=== PATIENT | female | born 1955 | race Caucasian/White ===

== ENCOUNTER 2019-07-05 14:37 | Emergency (ER) | payer OTHER ==
--- NOTE | 2019-07-05 14:58 | PDOC ---
History of Present Illness - General Chief Complaint: Pain Stated Complaint: LEFT LOWER QUADRANT PAIN INTO LEFT LEG Past History - Past Medical History Allergies/Adverse Reactions: Allergies Allergy/AdvReac Type Severity Reaction Status Date / Time No Known Allergies Allergy Unverified 07/05/19 14:55 Home Medications: Ambulatory Orders Acetaminophen with Codeine [Acetaminophen-Cod #3 Tablet] 1 tab PO PRN 07/05/19 Ciprofloxacin HCl [Cipro] 500 mg PO BID 07/05/19 Insulin Lispro [Humalog] 5 unit SQ AC 07/05/19 Lorazepam 0.5 mg PO HS 07/05/19 metroNIDAZOLE [Flagyl -] 500 mg PO TID 07/05/19 ED Treatment Course - LABORATORY CBC & Chemistry Diagram: 07/05/19 16:30 07/05/19 16:30 Medical Decision Making - Medical Decision Making HPI: 63yo F with PMH of DM, Depression, arthritis presenting with LLQ abdominal pain x 2 weeks. Patient has never had pain like this before. Endorses intermittent nausea but no vomiting. Had three nonbloody bowel movements yesterday, the first ones were hard and dark and the last ones were loose and light brown. History of abdominal surgeries include 3 c-sections. The pain is rated 10/10 and described as "chayo," radiating down her left leg. On Saturday, the patient started having pins and needles sensation in her left thigh, sometimes associated with the pain or with walking, but not present at rest. Has a GI doctor in the [facility]. Had a colonoscopy and endoscopy about three years ago which were "fine." Patient was evaluated at [facility] for this pain on 06/22 and [facility] three or four days later. Patient presents today because she still has pain and now has the unusual sensation in her leg. Patient was given Ciprofloxacin and Flagyl at [facility] but has not finished the course (many pills remain though the course should have completed by now) because the medicines made her nauseous and drowsy. Patient was given an enema at [place] which alleviated her pain as she had been constipated for three or four days. Denies fever, but endorses chills. No chest pain or shortness of breath. PCP: Dr. Truong (in the [facility]) GI: Dr. Wyman (in the city) ROS: Constitutional: no fever, +chills HEENT: no throat pain, no dysphagia Cardiovascular: no chest pain, no palpitations Respiratory: no cough, no shortness of breath Gastrointestinal: +abdominal pain, +nausea Genitourinary: no dysuria, no hematuria Musculoskeletal: +abnormal sensation on L. thigh, no abnormal sensation on R. thigh Skin: no rash, no itching Neurologic: +lightheadedness, +weakness PE: General: Awake, alert, and fully oriented, in no acute distress Head: No signs of trauma Eyes: EOMI, sclera anicteric ENT: Moist mucus membranes Neck: Normal ROM, supple Lungs: Lungs clear, Normal breath sounds Cardio: Regular rhythm, S1 and S2 present Abdomen: Tender to palpation in LLQ. Soft, nondistended. No guarding, no rebound , no masses. +L. CVA tenderness, no R. CVA tenderness Extremities: Normal range of motion, Distal pulses present. Equal femoral 2+ pulses. Reporting lessened sensation on anterior left thigh when compared to anterior right thigh. SKIN: Warm, Dry, normal turgor Neurologic: Cranial nerves II through XII grossly intact. Normal speech ED Course/MDM: DDX including but not limited to diverticulitis, UTI, pyelonephritis, mesenteric ischemia, SBO, gastroparesis, nephrolithiasis Labs Morphine Zofran Fluids 07/05/19 14:58 CBC WBC 5.5 K/mm3 (4.0-10.8) 07/05/19 16:30 RBC 4.18 M/mm3 (3.60-5.2) 07/05/19 16:30 Hgb 14.0 GM/dl (10.7-15.3) 07/05/19 16:30 Hct 42.8 % (32.4-45.2) 07/05/19 16:30 MCV 102.3 fl (80-96) H 07/05/19 16:30 MCH 33.4 pg (25.7-33.7) 07/05/19 16:30 MCHC 32.7 g/dl (32.0-36.0) 07/05/19 16:30 RDW 13.0 % (11.6-15.6) 07/05/19 16:30 Plt Count 165 K/MM3 (134-434) 07/05/19 16:30 MPV 11.2 fl (7.5-11.1) H 07/05/19 16:30 Absolute Neuts (auto) 2.5 K/mm3 07/05/19 16:30 Neutrophils % 45.5 % (42.8-82.8) 07/05/19 16:30 Lymphocytes % 41.9 % (8-40) H 07/05/19 16:30 Monocytes % 9.8 % (3.8-10.2) 07/05/19 16:30 Eosinophils % 1.6 % (0-4.5) 07/05/19 16:30 Basophils % 1.2 % (0-2.0) 07/05/19 16:30 No leukocytosis CMP Sodium 134 mmol/L (136-145) L 07/05/19 16:30 Potassium 5.3 mmol/L (3.5-5.1) H 07/05/19 16:30 Chloride 95 mmol/L (98-107) L 07/05/19 16:30 Carbon Dioxide 27 mmol/L (21-32) 07/05/19 16:30 Anion Gap 12 MMOL/L (8-16) 07/05/19 16:30 BUN 10.0 mg/dl (7-18) 07/05/19 16:30 Creatinine 0.7 mg/dl (0.55-1.3) 07/05/19 16:30 Est GFR (CKD-EPI)AfAm 106.87 07/05/19 16:30 Est GFR (CKD-EPI)NonAf 92.21 07/05/19 16:30 Random Glucose 409 mg/dl (74-106) H* 07/05/19 16:30 Calcium 9.4 mg/dl (8.5-10) 07/05/19 16:30 Magnesium 1.7 mg/dL (1.8-2.4) L 07/05/19 16:30 Total Bilirubin 0.4 mg/dl (0.2-1) 07/05/19 16:30 AST 24 U/L (15-37) 07/05/19 16:30 ALT 17 U/L (13-61) 07/05/19 16:30 Alkaline Phosphatase 77 U/L (45-117) 07/05/19 16:30 Troponin I < 0.03 ng/ml (0.00-0.05) 07/05/19 15:45 Total Protein 6.6 g/dl (6.4-8.2) 07/05/19 16:30 Albumin 3.9 g/dl (3.4-5.0) 07/05/19 16:30 Mildly elevated potassium Normal Cr Normal tpn Magnesium mildly low at 1.7 UA negative for infection Pending lactate and CT scan Patient signed out to Dr. Larsen and night team 07/05/19 19:01 *DC/Admit/Observation/Transfer Diagnosis at time of Disposition: Pelvic pain in female - Discharge Dispostion Disposition: HOME Condition at time of disposition: Fair - Referrals Referrals: Zachary Truong MD [Primary Care Provider] - - Patient Instructions Additional Instructions: For the pain take Tylenol or Motrin as needed. Call an PHARMACY INFORMATICIST Saturday and get an appointment to follow-up. Return to the emergency department immediately with ANY new, persistent or worsening symptoms. Continue any medications as previously prescribed by your physician. You should follow up with your primary doctor as soon as possible regarding today's emergency department visit. . Please make sure your doctor reviews the results of your emergency evaluation. Thank you for coming to the Emergency Department today for your care. It was a pleasure to see you today. Please note that your evaluation is INCOMPLETE until you follow-up with your doctor. - Post Discharge Activity
[2019-07-05 15:43] VITALS: TEMP 98.3; BMI 17.2
[2019-07-05] MEDS ORDERED: morphine CARPU-JECT 4 MG/1 ML DISP.SYRIN IVPUSH ONE (16:45)
[2019-07-05] MEDS ORDERED: SODIUM CHLORIDE 500 ML IV STA (16:45)
[2019-07-05] MEDS ORDERED: ONDANSETRON 4 MG/2 ML VIAL IVPUSH ONE (16:45)
[2019-07-05 16:48] LABS: BASO % 1.2 % (0-2.0); EOS % 1.6 % (0-4.5); HEMATOCRIT 42.8 % (32.4-45.2); LYMPH % 41.9 % (8-40); MCH 33.4 pg (25.7-33.7); MCHC 32.7 g/dl (32.0-36.0); MEAN CELL VOLUME 102.3 fl (80-96); MEAN PLT VOLUME 11.2 fl (7.5-11.1); MONO % 9.8 % (3.8-10.2); NEUT % 45.5 % (42.8-82.8); PLATELET COUNT 165 K/MM3 (134-434); RBC 4.18 M/mm3 (3.60-5.2); WHITE BLOOD COUNT 5.5 K/mm3 (4.0-10.8)
[2019-07-05] MEDS ORDERED: ONDANSETRON 4 MG/2 ML VIAL ONE (16:51)
[2019-07-05 16:59] LABS: INR 1.08 (0.82-1.09); PROTHROMBIN TIME (PATIENT) 12.1 SEC (10.2-13.0)
[2019-07-05] MEDS ORDERED: morphine SULFATE 4 MG/ML VIAL ONE (17:00)
[2019-07-05 17:08] LABS: ALBUMIN 3.9 g/dl (3.4-5.0); BILIRUBIN,TOTAL 0.4 mg/dl (0.2-1); CALCIUM 9.4 mg/dl (8.5-10); CREATININE 0.7 mg/dl (0.55-1.3); MAGNESIUM 1.7 mg/dL (1.8-2.4); POTASSIUM 5.3 mmol/L (3.5-5.1); TOT PROT 6.6 g/dl (6.4-8.2)
--- NOTE | 2019-07-05 18:22 | PDOC ---
Attending Attestation - Resident Resident Name: Juanita Jaime - ED Attending Attestation I have performed the following: I have examined & evaluated the patient, The case was reviewed & discussed with the resident, I agree w/resident's findings & plan, Exceptions are as noted - Physicial Exam PE: 07/05/19 18:19 GENERAL: Awake, alert, and fully oriented, in no acute distress. Pleasant. EYES: PERRLA, EOMI, sclera anicteric, conjunctiva clear ENT: Oropharynx clear without exudates. Moist mucosa NECK: Normal ROM, supple, no lymphadenopathy, JVD, or masses LUNGS: Breath sounds equal, clear to auscultation bilaterally. No wheezes, and no crackles HEART: Regular rate and rhythm, normal S1 and S2, no murmurs, rubs or gallops ABDOMEN: Soft, +LLQ ttp, normoactive bowel sounds. No guarding, no rebound. No masses EXTREMITIES: Normal range of motion, no edema. No clubbing or cyanosis. No cords, erythema, or tenderness. Distal extremities wwp with 2+ pulses x4 NEUROLOGICAL: Normal speech, cranial nerves intact, equal strength and sensation b/l. Antalgic but steady gait favoring LLE. SKIN: Warm, Dry, normal turgor, no rashes or lesions noted. - Medical Decision Making 07/05/19 18:21 63yo F prsents to the ED with 2 weeks of LLQ pain a/w nausea, now causing L anterior L pain Vitals wnl Exam with LLQ ttp, normal neuro and vascular exam to LLE DDx includes diverticulitis vs colitis vs ovarian pathology vs mesenteric ischemia vs renal colic vs UTI Plan for labs, UA. Will obtain CT vs CTA pending lactic acid level Per Marie's lab, lab should result on 30 mins
[2019-07-05 18:25] VITALS: BP 134/62; PULSE 72
[2019-07-05] MEDS ORDERED: INSULIN REGULAR HUMAN 100 UNITS/ML *VIAL IVPUSH ONE (20:06)
--- NOTE | 2019-07-05 20:06 | PDOC ---
*Physical Exam - Vital Signs Last Vital Signs Temp Pulse Resp BP Pulse Ox 98.3 F 72 16 134/62 99 07/05/19 18:24 07/05/19 18:24 07/05/19 14:55 07/05/19 18:24 07/05/19 18:24 ED Treatment Course - LABORATORY CBC & Chemistry Diagram: 07/05/19 16:30 07/05/19 16:30 - ADDITIONAL ORDERS Additional order review: Laboratory Results 07/05/19 07/05/19 07/05/19 16:30 16:30 16:30 PT with INR 12.1 INR 1.08 PTT (Actin FS) Sodium 134 L Potassium 5.3 H Chloride 95 L Carbon Dioxide 27 Anion Gap 12 BUN 10.0 Creatinine 0.7 Est GFR (CKD-EPI)AfAm 106.87 Est GFR (CKD-EPI)NonAf 92.21 Random Glucose 409 H* Lactic Acid Calcium 9.4 Magnesium Cancelled 1.7 L Total Bilirubin 0.4 AST 24 ALT 17 Alkaline Phosphatase 77 Troponin I Total Protein 6.6 Albumin 3.9 Lipase 76 Urine Color Urine Appearance Urine pH Urine Protein Urine Glucose (UA) Urine Ketones Urine Blood Urine Nitrite Urine Bilirubin Urine Urobilinogen Ur Leukocyte Esterase 07/05/19 07/05/19 07/05/19 16:30 16:30 15:50 PT with INR INR PTT (Actin FS) 25.7 Sodium Potassium Chloride Carbon Dioxide Anion Gap BUN Creatinine Est GFR (CKD-EPI)AfAm Est GFR (CKD-EPI)NonAf Random Glucose Lactic Acid 1.9 Calcium Magnesium Total Bilirubin AST ALT Alkaline Phosphatase Troponin I Total Protein Albumin Lipase Urine Color Yellow Urine Appearance Clear Urine pH 5.0 Urine Protein Negative Urine Glucose (UA) 2+ H Urine Ketones 2+ H Urine Blood Negative Urine Nitrite Negative Urine Bilirubin Negative Urine Urobilinogen 0.2 Ur Leukocyte Esterase Negative 07/05/19 15:45 PT with INR INR PTT (Actin FS) Sodium Potassium Chloride Carbon Dioxide Anion Gap BUN Creatinine Est GFR (CKD-EPI)AfAm Est GFR (CKD-EPI)NonAf Random Glucose Lactic Acid Calcium Magnesium Total Bilirubin AST ALT Alkaline Phosphatase Troponin I < 0.03 Total Protein Albumin Lipase Urine Color Urine Appearance Urine pH Urine Protein Urine Glucose (UA) Urine Ketones Urine Blood Urine Nitrite Urine Bilirubin Urine Urobilinogen Ur Leukocyte Esterase 07/05/19 16:30 RBC 4.18 MCV 102.3 H MCHC 32.7 RDW 13.0 MPV 11.2 H Neutrophils % 45.5 Lymphocytes % 41.9 H Monocytes % 9.8 Eosinophils % 1.6 Basophils % 1.2 - Medications Given in the ED: ED Medications Discontinued Medications Generic Name Dose Route Start Last Admin Trade Name Ayo PRN Reason Stop Dose Admin Sodium Chloride 500 mls @ 500 mls/hr 07/05/19 16:45 07/05/19 16:55 Normal Saline - IV 07/05/19 17:44 500 mls/hr ASDIR STA Administration Morphine Sulfate 4 mg 07/05/19 16:45 07/05/19 17:03 Morphine Injection - IVPUSH 07/05/19 16:46 4 mg ONCE ONE Administration Ondansetron HCl 4 mg 07/05/19 16:45 07/05/19 16:56 Zofran Injection IVPUSH 07/05/19 16:46 4 mg ONCE ONE Administration Progress Note - Progress Note Progress Note: Care of this patient was transferred [place] from Dr. Greenwood at 1900 hrs. Patient is a 63-year-old female who comes in complaining of left lower quadrant pain. Patient was diagnosed approximately 2 weeks ago with diverticulitis and given antibiotics however she did not finish them and the pain has returned now worse. Patient has a workup in progress including CT of the abdomen and pelvis. Patient otherwise has a normal white count a elevated glucose of 409 she is a diabetic. He was given 10 units of insulin for her sugar and repeat level was For any acute pathology however does show a large fibroid uterus which could very well be the cause of her pain Findings with patient's family recommended she follow up with her WATER CONTROL SUPERVISOR and patient was discharged home. *DC/Admit/Observation/Transfer Diagnosis at time of Disposition: Pelvic pain in female - Discharge Dispostion Disposition: HOME Condition at time of disposition: Fair Decision to Admit order: No - Referrals Referrals: Zachary Truong MD [Primary Care Provider] - - Patient Instructions Additional Instructions: For the pain take Tylenol or Motrin as needed. Call an WATER CONTROL SUPERVISOR Saturday morning and get an appointment to follow-up. Return to the emergency department immediately with ANY new, persistent or worsening symptoms. Continue any medications as previously prescribed by your physician. You should follow up with your primary doctor as soon as possible regarding today's emergency department visit. . Please make sure your doctor reviews the results of your emergency evaluation. Thank you for coming to the Emergency Department today for your care. It was a pleasure to see you today. Please note that your evaluation is INCOMPLETE until you follow-up with your doctor. - Post Discharge Activity
[2019-07-05] MEDS ORDERED: INSULIN REGULAR HUMAN 100 UNITS/ML *VIAL ONE (20:09)
== END 2019-07-05 21:08 | disposition home or self-care (01) ==
LOC: FER 14:37
PROC: 3E013VG Introduction of Insulin into Subcutaneous Tissue, Percutaneous Approach (ICD-10-PCS; principal; 2019-07-05)
PROC: 3E033NZ Introduction of Analgesics, Hypnotics, Sedatives into Peripheral Vein, Percutaneous Approach (ICD-10-PCS; 2019-07-05)
PROC: 3E033GC Introduction of Other Therapeutic Substance into Peripheral Vein, Percutaneous Approach (ICD-10-PCS; 2019-07-05)
PROC: 3E0337Z Introduction of Electrolytic and Water Balance Substance into Peripheral Vein, Percutaneous Approach (ICD-10-PCS; 2019-07-05)
DX: R10.2 Pelvic and perineal pain (principal)
CPT/HCPCS: 36415; 74177-TC; 80053; 81003; 82962; 83605; 83690; 83735; 84484; 85025; 85610; 85730; 87086; 99283-25

== ENCOUNTER 2021-11-14 14:46 | Emergency (ER) | payer OTHER ==
[2021-11-14 15:10] VITALS: BP 132/62; PULSE 72; TEMP 98.8; BMI 15.4
[2021-11-14] MEDS ORDERED: ACETAMINOPHEN 325 MG TABLET (FP) PO ONE (15:46)
[2021-11-14] MEDS ORDERED: KETOROLAC TROMETHAMINE 15 MG/ML VIAL IM ONE (15:46)
[2021-11-14] MEDS ORDERED: KETOROLAC TROMETHAMINE 15 MG/ML VIAL ONE (16:19)
[2021-11-14] MEDS ORDERED: ACETAMINOPHEN 325 MG TABLET (FP) ONE (16:19)
[2021-11-15 14:13] LABS: SARS-CoV-2 NAA Detected (Not Detected)
== END 2021-11-14 17:02 | disposition home or self-care (01) ==
LOC: FER 14:46
PROC: 3E0233Z Introduction of Anti-inflammatory into Muscle, Percutaneous Approach (ICD-10-PCS; principal; 2021-11-14)
DX: M25.512 Pain in left shoulder (principal)
CPT/HCPCS: 71046-TC-FY; 73030-TC-LT-FY; 96372; 99285-25; C9803; U0003; U0005